=== PATIENT | female | born 1985 | race Caucasian/White ===

== ENCOUNTER 2018-08-23 20:23 | Inpatient (IN) ==
[2018-08-23] MEDS ORDERED: Oxytocin 30 Units/500ml Premix 30 UNITS/500 ML BAG IV.SIG ONE (21:26)
[2018-08-23] MEDS ORDERED: Sod Chloride 0.9% Inj 1,000 ML IV.CONT PRN (21:26)
[2018-08-23] MEDS ORDERED: Sodium Chlor 0.9% Inj 500 ML IV.SIG PRN (21:26)
[2018-08-23] MEDS ORDERED: fentaNYL Citrate Inj 100 MCG/2 ML Ampul IV.PUSH PRN ×2 (21:26)
[2018-08-23] MEDS ORDERED: Naloxone Inj 0.4 MG/ML Vial IV.PUSH PRN (21:26)
[2018-08-23] MEDS ORDERED: Sod Chloride 0.9% Inj 1,000 ML IRRIGATION SCH (21:30)
[2018-08-23] MEDS ORDERED: Citric Acid/Sodium Citrate Liq 30 ML UDC PO SCH (21:30)
--- NOTE | 2018-08-23 21:40 | P.HPOB ---
History of Present Illness Service: OB Primary Care Physician: No Primary Care Physician Chief Complaint: Induction History of Present Illness: This 33 y/o female G1, EDC 08/17/18, EGA 40 6/7 wks presents to L&D for induction. +FM, No VB, No ctxs, No LOF. She denies probs during the . She has had PNC with Dr. Allred. Weeks Gestation:: 40 Para: 0 : 1 - Inpatient Certification I certify that the inpatient services were ordered in accordance with Medicare regulations governing the order. This includes certification that hospital inpatient services are reasonable and necessary and in the case of services not specified as inpatient-only under 42 CFR 419.22(n), that they are appropriately provided as inpatient services in accordance to with the 2-midnight benchmark under 43 CFR 412.3(e) Estimated Total Length of Stay (Days): 3 Plans for Post Hospital Care: Home Review of Systems All other systems reviewed negative except as stated in HPI PMFSH - History History Provided By: Patient - Medical / Surgical Hx Neg / Unobtainable Medical Problems Denied: Yes Surgical History: No Previous Surgery - Social History I have reviewed the patient's Social History: Yes - Tobacco History Smoking Status: Never smoker - Alcohol History How Often Do You Have a Drink Containing Alcohol: Never - Substance Use History Substance History: No History of Abuse - Travel History History of Recent Travel: No Recent Travel in the [place] Within the Last 8 Weeks: No Recent Travel Out of the Country Within the Last 8 Weeks: No - Immunization History Hx Influenza Vaccine This Season: No Medications and Allergies Active Medications: Active Medications Citric Acid/Sodium Citrate (Sodium Citrate/Citric Acid Liq) 30 ml PO VEGETABLE WASHER VIVIENNE Stop: 08/27/18 21:29 Allergies Allergy/AdvReac Type Severity Reaction Status Date / Time shellfish derived Allergy Severe Hives Verified 08/23/18 20:57 Home Medications Medication Instructions Recorded Confirmed Type PNV cmb#95-ferrous fumarate-FA 1 tab PO DAILY 08/23/18 08/23/18 History [] Exam Vital signs: Vital Signs 08/23/18 20:44 08/23/18 20:50 Temperature 97.4 F L Pulse Rate 80 Respiratory Rate 18 Blood Pressure 133/76 Intake & Output 08/23/18 08/23/18 08/24/18 06:59 18:59 06:59 Weight 86.183 kg Narrative: GENERAL: Well-nourished, well-developed patient. SKIN: Warm and dry. HEAD: Normocephalic and atraumatic. EYES: No scleral icterus. No injection or drainage. ENT: No nasal drainage noted. Mucous membranes pink. Airway patent. NECK: Supple, trachea midline. No JVD. CARDIOVASCULAR: Regular rate and rhythm without murmurs, gallops, or rubs. RESPIRATORY: Breath sounds equal bilaterally. No accessory muscle use. ABDOMEN/GI: Abdomen soft, non-tender, bowel sounds present, no rebound, no guarding Gravid GENITOURINARY: External Genitalia: intact and normal in appearance BUS glands: [normal] Cervix: [Post] Dilatation: [1-2] Effacement: [50] Station: [-2] Presentation: [vtx] Membranes: [intact] Uterine Contractions: [occ] FHT's: Category: [1] Baseline: [130] Reactive: [yes] Variability: [Mod] Decels: [None] +Accels EXTREMITIES: No cyanosis or edema. BACK: Nontender without obvious deformity. No CVA tenderness. NEUROLOGICAL: Awake and alert. Motor and sensory grossly within normal limits. Five out of 5 muscle strength in all muscle groups. Normal speech. Results - Labs Group B Strep: Negative Caprini VTE Risk Assessment Caprini VTE Risk Assessment: No/Low Risk (score <= 1) Caprini Risk Assessment Model: Point Value = 1 Point Value = 2 Point Value = 3 Point Value = 5 Age 41-60 Minor surgery BMI > 25 kg/m2 Swollen legs Varicose veins or History of unexplained or recurrent spontaneous Oral contraceptives or hormone replacement Sepsis (< 1 month) Serious lung disease, including pneumonia (< 1 month) Abnormal pulmonary function Acute myocardial infarction Congestive heart failure (< 1 month) History of inflammatory bowel disease Medical patient at bed rest Age 61-74 Arthroscopic surgery Major open surgery (> 45 min) Laparoscopic surgery (> 45 min) Malignancy Confined to bed (> 72 hours) Immobilizing plaster cast Central venous access Age >= 75 History of VTE Family history of VTE Factor V Leiden Prothrombin [id number] Lupus anticoagulant Anticardiolipin antibodies Elevated serum homocysteine Heparin-induced thrombocytopenia Other congenital or acquired thrombophilia Stroke (< 1 month) Elective arthroplasty Hip, pelvis, or leg fracture Acute spinal cord injury (< 1 month) Prophylaxis Regimen: Total Risk Factor Score Risk Level Prophylaxis Regimen 0-1 Low Early ambulation 2 Moderate Order ONE of the following: *Sequential Compression Device (SCD) *Heparin 5000 units SQ BID 3-4 Higher Order ONE of the following medications: *Heparin 5000 units SQ TID *Enoxaparin/Lovenox 40 mg SQ daily (WT < 150 kg, CrCl > 30 mL/min) *Enoxaparin/Lovenox 30 mg SQ daily (WT < 150 kg, CrCl > 10-29 mL/min) *Enoxaparin/Lovenox 30 mg SQ BID (WT < 150 kg, CrCl > 30 mL/min) AND/OR *Sequential Compression Device (SCD) 5 or more Highest Order ONE of the following medications: *Heparin 5000 units SQ TID (Preferred with Epidurals) *Enoxaparin/Lovenox 40 mg SQ daily (WT < 150 kg, CrCl > 30 mL/min) *Enoxaparin/Lovenox 30 mg SQ daily (WT < 150 kg, CrCl > 10-29 mL/min) *Enoxaparin/Lovenox 30 mg SQ BID (WT < 150 kg, CrCl > 30 mL/min) AND *Sequential Compression Device (SCD) Assessment and Plan - Diagnosis (1) 40 weeks gestation of Code(s): Z3A.40 - 40 weeks gestation of Status: Acute - Plan Cytotec 25 mcg vaginally q 4 hrs x 3. Pitocin 4 hrs after 3rd dose.
[2018-08-23 22:27] LABS: Baso % (Auto) 0.3 % (0.0-2.0); Eos # (Auto) 0.4 th/mm3 (0.0-0.4); Eos % (Auto) 4.2 % (0.0-4.0); Hemoglobin 12.2 gm/dL (11.6-15.3); Lymph # (Auto) 1.5 th/mm3 (1.0-4.8); Lymph % (Auto) 16.9 % (9.0-44.0); Mean Corpuscular HGB Conc 35.8 % (32.0-36.0); Mean Corpuscular Hemoglobin 31.4 pg (27.0-34.0); Mean Corpuscular Volume 87.6 fL (80.0-100.0); Mono # (Auto) 0.6 th/mm3 (0.0-0.9); Mono % (Auto) 6.6 % (0.0-8.0); Neut # (Auto) 6.6 th/mm3 (1.8-7.7); Platelet Count 296 th/mm3 (150-450); Red Blood Count 3.88 mil/mm3 (4.00-5.30); White Blood Count 9.1 th/mm3 (4.0-11.0)
[2018-08-23 23:13] LABS: Bacteria,Urine Rare /hpf; Bilirubin,Urine Negative (Negative); Clarity,Urine Clear (Clear); Color,Urine Yellow (Yellw/Straw); Glucose,Urine (UA) Negative (Negative); Leukocyte Esterase,Urine Trace (Negative); Mucus,Urine Few /lpf (Occasional); Nitrite,Urine Negative (Negative); Squamous Epithelial Cell,Urine 2 /hpf (0-5)
[2018-08-24] MEDS ORDERED: Oxytocin 30 Units/500ml Premix 30 UNITS/500 ML BAG IV.SIG PRN (05:26)
--- NOTE | 2018-08-24 09:48 | P.OBLABOR ---
Subjective Interval history: Pt seen and examined. She has no complaints. Is comfortable at this time. The exam, history, and the medical decision-making described in the above note were completed with the assistance of the resident physician. I reviewed and agree with the findings presented. I attest that I had a [id number] encounter with the patient on the same day, and personally performed and documented my assessment and findings in the medical record. Pt seen and examined with resident. Agree with resident note. Objective Vital Signs: Vital Signs - 8 hr 08/24/18 03:50 08/24/18 03:52 08/24/18 05:41 Temperature 98.0 F Pulse Rate 71 Respiratory Rate 18 18 Blood Pressure 136/80 08/24/18 05:42 08/24/18 06:05 08/24/18 06:15 Temperature Pulse Rate 73 67 Respiratory Rate 18 Blood Pressure 110/65 112/58 L 08/24/18 06:31 08/24/18 07:00 08/24/18 07:10 Temperature Pulse Rate 73 67 79 Respiratory Rate Blood Pressure 99/53 L 101/56 L 08/24/18 07:15 08/24/18 07:45 08/24/18 08:10 Temperature 98.7 F Pulse Rate 77 77 Respiratory Rate 18 18 Blood Pressure 125/74 125/78 08/24/18 09:00 08/24/18 09:05 Temperature Pulse Rate 75 Respiratory Rate 18 Blood Pressure 121/80 Objective: Pelvic Exam: Cervix: posterior Dilatation: 3cm Effacement: 50 Station: -2 Presentation: vertex Membranes: ruptured Uterine Contractions: q2-3min FHT's: Category: 1 Baseline: 120s Reactive: yes Variability: moderate Decels: none Assessment and Plan - Plan 33yo at 41/0 admitted for induction of labor Rh negative, may require Rhogam after delivery if baby is Rh positive GBS neg FHT Category 1 Cervix: 3/50/-2 s/p Cytotec 25 mcg vaginally q 4 hrs x 3. Continue Pitocin AROM achieved Will likely place IUPC to monitor power of contractions ЕКАТЕРИНА Andres
[2018-08-24] MEDS ORDERED: fentaNYL 2MCG-Bupiv 0.125% Epi 150 ML EPIDURAL ONE (14:30)
[2018-08-24] MEDS ORDERED: fentaNYL 2MCG-Bupiv 0.125% Epi 150 ML EPIDURAL PRN (16:41)
[2018-08-24] MEDS ORDERED: fentaNYL Citrate Inj 100 MCG/2 ML Ampul EPIDURAL ONE (17:00)
--- NOTE | 2018-08-24 17:01 | P.OBLABOR ---
Subjective Interval history: Patient seen and examined. She has her epidural and is feeling comfortable. She is not having any pain. No complaints. Objective Vital Signs: Vital Signs - 8 hr 08/24/18 09:00 08/24/18 09:05 08/24/18 09:40 Temperature Pulse Rate 75 80 Respiratory Rate 18 Blood Pressure 121/80 120/82 08/24/18 10:00 08/24/18 10:10 08/24/18 10:15 Temperature 97.8 F Pulse Rate 86 Respiratory Rate 18 Blood Pressure 130/78 08/24/18 10:35 08/24/18 11:10 08/24/18 12:15 Temperature 97.8 F Pulse Rate 80 81 Respiratory Rate 18 Blood Pressure 127/73 132/78 08/24/18 12:37 08/24/18 12:40 08/24/18 13:30 Temperature Pulse Rate 80 76 Respiratory Rate 20 Blood Pressure 129/80 08/24/18 13:34 08/24/18 14:00 08/24/18 14:56 Temperature Pulse Rate 76 Respiratory Rate 20 20 Blood Pressure 126/72 08/24/18 15:05 08/24/18 15:26 08/24/18 15:30 Temperature 97.9 F Pulse Rate 90 79 Respiratory Rate 18 Blood Pressure 135/70 122/60 08/24/18 15:55 08/24/18 16:10 08/24/18 16:25 Temperature Pulse Rate 78 75 79 Respiratory Rate 18 Blood Pressure 122/68 Objective: Pelvic Exam: Cervix: midline Dilatation: 5 Effacement: 70 Station: -2 Presentation: vertex Membranes: ruptured Uterine Contractions: q2m FHT's: Category: 2 Baseline: 130s Reactive: yes Variability: moderate Decels: early and variable Assessment and Plan - Diagnosis (1) Encounter for induction of labor Code(s): Z34.90 - Encounter for supervision of normal , unspecified, unspecified trimester Status: Acute - Plan 33yo at 41/0 admitted for induction of labor Rh negative, may require Rhogam after delivery if baby is Rh positive GBS neg FHT Category 2 Cervix: 5/70/-2 s/p Cytotec 25 mcg vaginally q 4 hrs x 3. Continue Pitocin AROM achieved Pt has gotten epidural Will likely place IUPC to monitor power of contractions with next cervical check WDW Dr. Rodriguez, Pat Gambino RN
[2018-08-24] MEDS ORDERED: Lidocaine 1% Inj 50 ML Vial ONE (19:58)
[2018-08-25 00:40] LABS: Cord Arterial Blood HCO3 20.3
[2018-08-25] MEDS ORDERED: Naloxone Inj 0.4 MG/ML Vial IV.PUSH PRN (01:15)
[2018-08-25] MEDS ORDERED: Witch Hazel 50%/Glyderin 12.5% 40 Pad Jar RECTAL PRN (01:15)
[2018-08-25] MEDS ORDERED: Bisacodyl 10 MG Supp RECTAL PRN (01:15)
[2018-08-25] MEDS ORDERED: Acetaminophen 325 MG Tablet PO PRN (01:15)
[2018-08-25] MEDS ORDERED: Oxytocin 30 Units/500ml Premix 30 UNITS/500 ML BAG IV.CONT PRN (01:15)
[2018-08-25] MEDS ORDERED: Zolpidem Tartrate 5 MG Tablet PO PRN (01:15)
[2018-08-25] MEDS ORDERED: Benzocaine 20% Top Spray 60 ML Can TOPICAL PRN (01:15)
--- NOTE | 2018-08-25 01:20 | P.OBDELI ---
Weeks Gestation: 40 Medical Induction of Labor: Yes Artificial Rupture of Membrane: Yes Artificial ROM Date: 08/24/18 Artificial ROM Time: 09:30 Anesthesia: Epidural, Lidocaine local to perineum Episiotomy: midline Vaginal Delivery: Normal Presentation: Occiput posterior Nuchal Cord: x1 Delayed Cord Clamping (45 sec): Yes Placenta: Spontaneous delivery, Intact Laceration: 4 deg, Involving anal sphincter, Into rectum Repair: Chromic running, Vicryl running Estimated blood loss (mL): 200 Infant: Male Male A Infant Delivery Date: 08/25/18 Infant Delivery Time: 00:26 Weight: 3.785 kg score (1 min): 8 score (5 min): 9 (moderate meconium noted at delivery) Additional Information: delivery doctor -Osmany Rodriguez MD
[2018-08-25] MEDS: Clindamycin 900 mg/NS Premix 900 MG/50 ML PIGGYBACK IV.SIG SCH ×3 (02:39→17:10)
[2018-08-25] MEDS: Senna/Docusate Sodium 8.6/50 MG Tablet PO SCH ×2 (09:20→21:51)
[2018-08-25] MEDS: Prenatal Vit/Ca/Iron/Folic Acid Tablet PO SCH (09:20)
[2018-08-25] MEDS: Diphenoxylate/Atropine 2.5/0.025 MG Tablet PO SCH ×2 (11:39→18:32)
[2018-08-25] MEDS ORDERED: Diphtheria/Tetanus/Pertussis Vaccine Inj 0.5 ML Syringe IM ONE (16:00)
[2018-08-25] MEDS ORDERED: Measles/Mumps/Rubella Vaccine Inj 0.5 ML Vial SQ ONE (16:00)
[2018-08-26] MEDS ORDERED: Diphenoxylate/Atropine 2.5/0.025 MG Tablet PO SCH (02:00)
[2018-08-26] MEDS: Diphenoxylate/Atropine 2.5/0.025 MG Tablet PO SCH ×3 (08:39→20:53)
[2018-08-26] MEDS: Prenatal Vit/Ca/Iron/Folic Acid Tablet PO SCH (08:41)
[2018-08-26] MEDS: Senna/Docusate Sodium 8.6/50 MG Tablet PO SCH ×2 (08:41→20:53)
--- NOTE | 2018-08-26 08:43 | P.PNOB ---
Subjective Post day: 1 Interval history: day # 1. AFVSS overnight. Pain well-controlled. Decreased lochia. Denies dysuria. No breast tenderness. She is feeding the baby via breast. Appetite good. No nausea or vomiting. + flatus. no bowel movement. Ambulating well. Denies calf pain, shortness of breath, or cough. Otherwise, she is doing well this morning and has no other complaints. Objective Vital Signs/I&O: Intake & Output 08/25/18 08/26/18 08/26/18 18:59 06:59 18:59 Intake Total 50 / 50 Balance 50 / 50 Intake: IV 50 / 50 Cleocin 900 mg/NS Premix 900 mg 50 / 50 In 50 ml @ 100 mls/hr IV.SIG Q8H PENDING SALE TO [facility] Rx#:[id number] Result Diagrams: 08/23/18 21:05 Objective Remarks: GENERAL: Well-nourished, well-developed patient. CARDIOVASCULAR: Regular rate and rhythm without murmurs, gallops, or rubs. RESPIRATORY: Breath sounds equal bilaterally. No accessory muscle use. ABDOMEN/GI: Abdomen soft, non-tender. Fundus: Firm, non-tender at umbilicus. GENITOURINARY: Light to moderate bleeding. EXTREMITIES: No cyanosis or edema, non-tender, without signs of DVT. Medications and IVs: Active Medications Acetaminophen (Tylenol) 650 mg PO Q4H PRN PRN Reason: PAIN SCALE 1 TO 2 Al Hydroxide/Mg Hydroxide (Milk Of Magnesia Liq) 30 ml PO Q12H PRN PRN Reason: Mild Constipation Benzocaine (Americaine 20% [place]) 1 spray TOPICAL Q4H PRN PRN Reason: For Perineum Discomfort Last Admin: 08/25/18 01:40 Dose: 1 spray Bisacodyl (Dulcolax Supp) 10 mg RECTAL DAILY PRN PRN Reason: SEVERE CONSITIPATION Diphenoxylate HCl/Atropine (Lomotil) 1 tab PO Q6H PENDING SALE TO [facility] Oxytocin (Pitocin 30 Units/Ns 500 Ml Premix) 30 units in 500 mls @ 2 mls/hr IV.SIG TITRATE PRN; Protocol PRN Reason: For induction of labor Last Admin: 08/24/18 05:43 Dose: 2 milliunit/min, 2 mls/hr Fentanyl/Bupivacaine/Sodium Chlor (Fentanyl 2 Mcg-Bupiv 0.125% Epi) 150 mls @ 12 mls/hr EPIDURAL PRN PRN PRN Reason: for Labor Pain Last Admin: 08/24/18 15:00 Dose: 12 mls/hr Oxytocin (Pitocin 30 Units/Ns 500 Ml Premix) 30 units in 500 mls @ 100 mls/hr IV.CONT UNSCH PRN PRN Reason: Heavy bleeding Ibuprofen (Motrin) 800 mg PO Q8H PRN PRN Reason: For Cramping Last Admin: 08/26/18 06:20 Dose: 800 mg Lactulose (Lactulose Liq) 30 ml PO DAILY PRN PRN Reason: SEVERE CONSITIPATION Naloxone HCl (Narcan Inj) 0.1 mg IV.PUSH Q2M PRN PRN Reason: for opiate reversal Ondansetron HCl (Zofran Odt) 4 mg PO Q6H PRN PRN Reason: NAUSEA OR VOMITING Oxycodone/Acetaminophen (Percocet 5/325 Mg) 1 tab PO Q4H PRN PRN Reason: PAIN SCALE 3 TO 5 Last Admin: 08/25/18 21:49 Dose: 1 tab Vit/Calcium/Iron/Folic Ac (Stuartnatal Plus 3) 1 tab PO DAILY [facility] Last Admin: 08/25/18 09:20 Dose: 1 tab Senna/Docusate Sodium (Amarilis-Colace) 1 tab PO BID [facility] Last Admin: 08/25/18 21:51 Dose: 1 tab Sennosides (Senokot) 17.2 mg PO Q12H PRN PRN Reason: Moderate Constipation Sodium Chloride (Ns Flush) 2 ml IV.FLUSH BID [facility] Last Admin: 08/26/18 02:15 Dose: Not Given Sodium Chloride (Ns Flush) 2 ml IV.FLUSH PRN PRN PRN Reason: FLUSH AFTER USING IV ACCESS Sodium Chloride (Ns Flush) 2 ml IV.FLUSH BID [facility] Last Admin: 08/26/18 02:15 Dose: Not Given Sodium Chloride (Ns Flush) 2 ml IV.FLUSH PRN PRN PRN Reason: FLUSH AFTER USING IV ACCESS Witch Franny/Glycerin (Tucks Pads) 1 applicatio RECTAL QID PRN PRN Reason: HEMORRHOIDS Last Admin: 02/14/19 01:39 Dose: 1 applicatio Zolpidem Tartrate (Ambien) 5 mg PO HS PRN PRN Reason: SLEEP Assessment and Plan - Diagnosis (1) Encounter for induction of labor Code(s): Z34.90 - Encounter for supervision of normal , unspecified, unspecified trimester Status: Acute - Plan 33 y/o who is PPD# 1 s/p . -Continue routine care. -Percocet and Motrin PRN pain. -Encouraged OOB. Advised pelvic rest for 6 wks. -Will need a f/u appt. within 6 wks. -Re: ctrl, she would like to consider her options with her OB provider. -D/c tomorrow. sdw Dr. Andres - Attending Attestation The exam, history, and the medical decision-making described in the above note were completed with the assistance of the resident physician. I reviewed and agree with the findings presented. I attest that I had a [id number] encounter with the patient on the same day, and personally performed and documented my assessment and findings in the medical record. Pt seen and examined. Agree with resident note.
[2018-08-27] MEDS: Diphenoxylate/Atropine 2.5/0.025 MG Tablet PO SCH ×2 (07:19→08:41)
[2018-08-27] MEDS: Prenatal Vit/Ca/Iron/Folic Acid Tablet PO SCH (08:41)
[2018-08-27] MEDS: Senna/Docusate Sodium 8.6/50 MG Tablet PO SCH (08:41)
--- NOTE | 2018-08-27 09:22 | P.PNOB ---
Subjective Post day: 2 Interval history: Ms Medellin had no acute events overnight. This morning she is a little concerned that she saw her baby spit up blood, but then noticed that her nipples were chapped and bleeding. We will get the commercial solar sales consultant to see her. She states she has some ointment for her nipples. Her pain is controlled on ibuprofen but she is still very sore from the 4th degree laceration repair; she is tolerating PO, ambulating, voiding and flatus but no BM yet. Lochia is reducing. She is and has augmented with a little formula. Baby will get a circumcision this morning prior to discharge. She already has a prescription for control from her doctor that she will get filled upon discharge. She would like stool softener due to soreness. Denies CP, SOB, N/V/D , abdominal or leg pain. Objective Vital Signs/I&O: Vital Signs 08/26/18 20:00 Temperature 98.3 F Pulse Rate 75 Respiratory Rate 18 Blood Pressure 121/69 Result Diagrams: 08/23/18 21:05 Objective Remarks: GENERAL: Well-nourished, well-developed patient in NAD. CARDIOVASCULAR: Regular rate and rhythm without murmurs, gallops, or rubs. RESPIRATORY: Breath sounds equal bilaterally. No accessory muscle use. ABDOMEN/GI: Abdomen soft, non-tender. Fundus: Firm, non-tender at umbilicus. Laceration repair c/d/i with no bleeding. GENITOURINARY: Light to moderate bleeding. EXTREMITIES: No cyanosis or edema, non-tender, without signs of DVT. Medications and IVs: Active Medications Acetaminophen (Tylenol) 650 mg PO Q4H PRN PRN Reason: PAIN SCALE 1 TO 2 Al Hydroxide/Mg Hydroxide (Milk Of Francesca Lichirag) 30 ml PO Q12H PRN PRN Reason: Mild Constipation Benzocaine (Americaine 20% Top [place]) 1 spray TOPICAL Q4H PRN PRN Reason: For Perineum Discomfort Last Admin: 08/25/18 01:40 Dose: 1 spray Bisacodyl (Dulcolax Supp) 10 mg RECTAL DAILY PRN PRN Reason: SEVERE CONSITIPATION Diphenoxylate HCl/Atropine (Lomotil) 1 tab PO Q6H VIVIENNE Last Admin: 08/27/18 08:41 Dose: 1 tab Oxytocin (Pitocin 30 Units/Ns 500 Ml Premix) 30 units in 500 mls @ 2 mls/hr IV.SIG TITRATE PRN; Protocol PRN Reason: For induction of labor Last Admin: 08/24/18 05:43 Dose: 2 milliunit/min, 2 mls/hr Fentanyl/Bupivacaine/Sodium Chlor (Fentanyl 2 Mcg-Bupiv 0.125% Epi) 150 mls @ 12 mls/hr EPIDURAL PRN PRN PRN Reason: for Labor Pain Last Admin: 08/24/18 15:00 Dose: 12 mls/hr Oxytocin (Pitocin 30 Units/Ns 500 Ml Premix) 30 units in 500 mls @ 100 mls/hr IV.CONT UNSCH PRN PRN Reason: Heavy bleeding Ibuprofen (Motrin) 800 mg PO Q8H PRN PRN Reason: For Cramping Last Admin: 08/27/18 08:41 Dose: 800 mg Lactulose (Lactulose Liq) 30 ml PO DAILY PRN PRN Reason: SEVERE CONSITIPATION Naloxone HCl (Narcan Inj) 0.1 mg IV.PUSH Q2M PRN PRN Reason: for opiate reversal Ondansetron HCl (Zofran Odt) 4 mg PO Q6H PRN PRN Reason: NAUSEA OR VOMITING Oxycodone/Acetaminophen (Percocet 5/325 Mg) 1 tab PO Q4H PRN PRN Reason: PAIN SCALE 3 TO 5 Last Admin: 08/25/18 21:49 Dose: 1 tab Vit/Calcium/Iron/Folic Ac (Stuartnatal Plus 3) 1 tab PO DAILY [facility] Last Admin: 08/27/18 08:41 Dose: 1 tab Senna/Docusate Sodium (Amarilis-Colace) 1 tab PO BID [facility] Last Admin: 08/27/18 08:41 Dose: 1 tab Sennosides (Senokot) 17.2 mg PO Q12H PRN PRN Reason: Moderate Constipation Sodium Chloride (Ns Flush) 2 ml IV.FLUSH BID [facility] Last Admin: 08/26/18 02:15 Dose: Not Given Sodium Chloride (Ns Flush) 2 ml IV.FLUSH PRN PRN PRN Reason: FLUSH AFTER USING IV ACCESS Sodium Chloride (Ns Flush) 2 ml IV.FLUSH BID [facility] Last Admin: 08/26/18 02:15 Dose: Not Given Sodium Chloride (Ns Flush) 2 ml IV.FLUSH PRN PRN PRN Reason: FLUSH AFTER USING IV ACCESS Witch Franny/Glycerin (Tucks Pads) 1 applicatio RECTAL QID PRN PRN Reason: HEMORRHOIDS Last Admin: 08/25/18 01:39 Dose: 1 applicatio Zolpidem Tartrate (Ambien) 5 mg PO HS PRN PRN Reason: SLEEP Assessment and Plan - Diagnosis (1) Encounter for induction of labor Code(s): Z34.90 - Encounter for supervision of normal , unspecified, unspecified trimester Status: Acute - Plan 33 y/o who is PPD# 2 s/p and 4th degree laceration repair. -Continue routine care. -Percocet and Motrin PRN pain. Will discharge with 6 Percocet and Ibuprofen. -Encouraged OOB. Advised pelvic rest for 6 wks. Advised showers/no baths for 2 weeks. -Will need a f/u appt. within 6 wks. -Re: ctrl, she has a prescription from her OB provider. -D/c today. -Will discharge with stool softener. dw Dr. Rodriguez, SDW Dr Lewis
== END 2018-08-27 13:25 | disposition home or self-care (01) | DRG 768 ==
LOC: H2E 20:23 → H1EA 08-25 04:18
PROVIDERS: ADMIT Obstetrics & Gynecology; ATTEND Obstetrics & Gynecology
CPT/HCPCS: 59025; 81001; 82805; 85025; 86900; 86901; 90715; J2590; J3010; J7120